=== PATIENT | female | born 1985 | race African-American/Black ===

== ENCOUNTER 2018-01-29 12:31 | Emergency (ER) | payer BC, OTHER ==
[2018-01-29] MEDS ORDERED: NORMAL SALINE 1000 ML 1,000 ML IV ONE ×2 (13:14→19:03)
--- NOTE | 2018-01-29 13:14 | ER Document Report ---
ED Medical Screen (RME) - General Chief Complaint: Chest Pain Stated Complaint: SHORT OF BREATH,DIZZY Time Seen by Provider: 01/29/18 13:09 Notes: Patient is a 32-year-old female that presents to the emergency department for chief complaint of chest tightness and shortness of breath. Patient states she is having symptoms over the past few days, she is also had burning in her chest , noticed that she has had dark stools starting yesterday, denies history of transfusions in the past, does admit to having GERD. Denies iron supplementation, or recent Pepto-Bismol ingestion. ROS: Other than noted above, the 12 point review of systems was reviewed with the patient and were negative, all pertinent findings are included in the HPI. PHYSICAL EXAMINATION: Vital signs reviewed. GENERAL: Well-appearing, well-nourished and in no acute distress. HEAD: Atraumatic, normocephalic. EYES: Pupils equal round extraocular movements intact, conjunctiva are normal. ENT: Nares patent NECK: Normal range of motion CV: Heart regular rate and rhythm LUNGS: No respiratory distress Musculoskeletal: Normal range of motion NEUROLOGICAL: Normal speech PSYCH: Normal mood, normal affect. MDM: Patient seen and examined for rapid initial assessment. Vital signs reviewed. A comprehensive ED assessment and evaluation of the patient, analysis of test results and completion of the medical decision making process will be conducted by additional ED providers. *Note is created using voice recognition software and may contain spelling, syntax or grammatical errors. TRAVEL OUTSIDE OF THE [place] IN LAST 30 DAYS: No - Related Data Allergies/Adverse Reactions: No Known Allergies Allergy (Verified 12/15/12 00:04) Past Medical History - Past Medical History Cardiac Medical History: Reports: Hx Hypertension - during Past Surgical History: Reports: Hx Section - x2 - Immunizations Immunizations up to date: Yes Hx Diphtheria, Pertussis, Tetanus Vaccination: No Physical Exam - Vital signs Vitals: Temp Pulse Resp BP Pulse Ox 98.6 F 85 17 115/72 100 01/29/18 12:58 01/29/18 12:58 01/29/18 12:58 01/29/18 12:58 01/29/18 12:58 Course - Vital Signs Vital signs: Temp Pulse Resp BP Pulse Ox 98.6 F 85 17 115/72 100 01/29/18 12:58 01/29/18 12:58 01/29/18 12:58 01/29/18 12:58 01/29/18 12:58 Doctor's Discharge - Discharge Referrals: GAB,NO [Primary Care Provider] - Follow up as needed
[2018-01-29] MEDS ORDERED: PANTOPRAZOLE SODIUM 40 MG VIAL IV ONE ×2 (13:15→16:31)
[2018-01-29] MEDS ORDERED: METOCLOPRAMIDE HCL ORAL SOLN 10 MG/10 ML UDCUP PO ONE (13:15)
[2018-01-29] MEDS ORDERED: FAMOTIDINE INJ/PF 20 MG/2 ML SDV IV ONE (13:15)
[2018-01-29] MEDS ORDERED: LIDOCAINE 2% VISCOUS SOLN 20 ML UDCUP PO ONE (13:15)
[2018-01-29] MEDS ORDERED: MAG HYDROX/AL HYDROX/SIMETH SUSP 30 ML UDCUP PO ONE (13:15)
[2018-01-29 13:57] LABS: ABSOLUTE BASOPHILS # (AUTO) 0.1 10^3/uL (0.0-0.2); ABSOLUTE EOSINOPHILS # (AUTO) 0.3 10^3/uL (0.0-0.6); ABSOLUTE LYMPHOCYTES (AUTO) 1.7 10^3/uL (0.5-4.7); ABSOLUTE MONOCYTES (AUTO) 0.7 10^3/uL (0.1-1.4); ABSOLUTE NEUT (AUTO) 6.1 10^3/uL (1.7-8.2); BASOPHILS % (AUTO) 0.7 % (0-2); EOSINOPHILS % (AUTO) 3.3 % (0-6); HEMATOCRIT 30.9 % (36.0-47.0); HEMOGLOBIN 10.3 g/dL (12.0-15.5); LYMPHOCYTES % (AUTO) 19.6 % (13-45); MEAN CORPUSCULAR HGB CONC 33.3 g/dL (32.0-36.0); MEAN CORPUSCULAR VOLUME 87 fl (80-97); MONOCYTES % (AUTO) 7.3 % (3-13); PLATELET COUNT 229 10^3/uL (150-450); RED BLOOD COUNT 3.55 10^6/uL (3.72-5.28); RED CELL DISTRIBUTION WIDTH 12.9 % (11.5-14.0); SEGMENTED NEUTROPHILS % (AUTO) 69.1 % (42-78); TOTAL CELLS COUNTED % (AUTO) 100 %; WHITE BLOOD COUNT 8.9 10^3/uL (4.0-10.5)
--- NOTE | 2018-01-29 13:58 | ER Document Report ---
ED General - General TRAVEL OUTSIDE OF THE [place] IN LAST 30 DAYS: No <FIDEL ALMANZA - Last Filed: 01/29/18 19:04> <CONRAD SANTIAGO - Last Filed: 01/29/18 21:46> - General Chief Complaint: Chest Pain Stated Complaint: SHORT OF BREATH,DIZZY Time Seen by Provider: 01/29/18 13:09 - HPI Notes: Patient is a 32-year-old female with no significant past medical history who presents to the ED complaining of chest pressure, epigastric pain, and shortness of breath over the last 2-3 days that has been constant and unchanging. Patient states that bending forward does reproduce her symptoms, but is okay with ambulation. She has not had any recent illness. Patient states that she has noticed dark colored stool, but is not sure if it is black or tarry. She is still able to eat and drink without any difficulties. She is urinating normally. She has not noticed any vaginal discharge, odor, or bleeding. Patient states that this has happened in the past but cannot remember what [facility] told her it was. Denies drug allergies or IV drug abuse. No other concerns or complaints. Denies any prolonged immobilization, distance travel, recent surgery/trauma, personal cancer history, hormone use, smoking, or previous DVT/PE. Denies any headache, fever, URI, sore throat, palpitations, syncope, cough, wheeze, abdominal pain, nausea/vomiting/diarrhea, urinary retention, dysuria, hematuria, back pain, or rash. Surgical hx of Lap band. (FIDEL ALMANZA) - Related Data Allergies/Adverse Reactions: No Known Allergies Allergy (Verified 12/15/12 00:04) Past Medical History - Social History Smoking Status: Never Smoker Frequency of alcohol use: Social Drug Abuse: Marijuana Family History: Thyroid Disfunction Patient has suicidal ideation: No Patient has homicidal ideation: No - Past Medical History Cardiac Medical History: Reports: Hx Hypertension - during Renal/ Medical History: Denies: Hx Peritoneal Dialysis GI Medical History: Reports: Hx Gastroesophageal Reflux Disease, Hx Ulcer Past Surgical History: Reports: Hx Section - x2 - Immunizations Immunizations up to date: Yes Hx Diphtheria, Pertussis, Tetanus Vaccination: No <FIDEL ALMANZA - Last Filed: 01/29/18 19:04> Review of Systems - Review of Systems -: Yes All other systems reviewed and negative <FIDEL ALMANZA - Last Filed: 01/29/18 19:04> Physical Exam <ARCHIEFIDEL - Last Filed: 01/29/18 19:04> <CONRAD SANTIAGO - Last Filed: 01/29/18 21:46> - Vital signs Vitals: Temp Pulse Resp BP Pulse Ox 98.6 F 85 17 115/72 100 01/29/18 12:58 01/29/18 12:58 01/29/18 12:58 01/29/18 12:58 01/29/18 12:58 - Notes Notes: PHYSICAL EXAMINATION: GENERAL: Well-appearing, well-nourished and in no acute distress. HEAD: Atraumatic, normocephalic. EYES: Pupils equal round and reactive to light, extraocular movements intact, sclera anicteric, conjunctiva are normal. ENT: Nares patent and without discharge. oropharynx clear without exudates. No tonsilar hypertrophy or erythema. Moist mucous membranes. NECK: Normal range of motion, supple without lymphadenopathy Chest: + tenderness to palpation of the inferior sternal area. LUNGS: Breath sounds clear to auscultation bilaterally and equal. No wheezes rales or rhonchi. HEART: Regular rate and rhythm without murmurs, rubs, gallops. ABDOMEN: Soft, nondistended abdomen. No guarding, no rebound. No masses appreciated. Normal bowel sounds present. No CVA tenderness bilaterally. + mild epigastric tenderness. Rectal: accompanied by female nurse Kylie. + black tarry stool noted. Musculoskeletal: FROM to passive/active. Strength 5+/5. Radha neg. No asymmetry to LE's. Extremities: No cyanosis, clubbing, or edema b/l. Peripheral pulses 2+. Capillary refill less than 3 seconds. NEUROLOGICAL: Normal speech, normal gait. PSYCH: Normal mood, normal affect. SKIN: Warm, Dry, normal turgor, no rashes or lesions noted. (FIDLE ALMANZA) Course - Laboratory Result Diagrams: 01/29/18 13:32 01/29/18 13:32 <FIDEL ALMANZA - Last Filed: 01/29/18 19:04> - Laboratory Result Diagrams: 01/29/18 13:32 01/29/18 13:32 <CONRAD SANTIAGO - Last Filed: 01/29/18 21:46> - Re-evaluation Re-evalutation: 01/29/18 16:39 Patient is an afebrile, well-hydrated, 32-year-old female who presents to the ED with Hemoccult positive stool, epigastric pain, chest pain unspecified. Vitals are acceptable currently without significant tachycardia, tachypnea, or hypoxia. CBC shows mild anemia. CMP unremarkable. Hemoccult/guaiac was positive as well as physical exam showing black tarry stool. Patient did receive a total of 80 mg of Protonix as a bolus as well as started on a Protonix drip. She has received nausea medications as well. Patient is nontoxic-appearing. EKG/cardiac enzymes 2, chest x-ray are all unremarkable for any acute pathology. Patient has a heart score of 1, Wells score of 0, and is PERC negative. Patient does not have any chest pain, dyspnea, or current shortness of breath. Patient's presentation and symptomatology creates low suspicion for ACS, PE, pneumothorax, pericarditis, dissection, respiratory compromise, severe dehydration, sepsis, meningitis. 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 01/29/18 16:[address] Ghazal Gold, [facility], who accepted pt for transfer. Pt in agreement. 01/29/18 19:05 Pt has no new concerns or complaints. Vitals acceptable. Transfer of care to [facility]. (FIDEL ALMANZA) 01/29/18 21:20 Patient reevaluated and is stable for transfer at this time. 01/29/18 21:43 transport is at bedside patient remained stable at this time. (CONRAD SANTIAGO) - Vital Signs Vital signs: Temp Pulse Resp BP Pulse Ox 98.6 F 82 16 120/76 100 01/29/18 12:58 01/29/18 21:00 01/29/18 21:00 01/29/18 21:00 01/29/18 21:00 - Laboratory Laboratory results interpreted by ks: 01/29/18 01/29/18 13:32 13:32 RBC 3.55 L Hgb 10.3 L Hct 30.9 L AST 38 H Discharge <FIDEL ALMANZA - Last Filed: 01/29/18 19:04> <CONRAD SANTIAGO - Last Filed: 01/29/18 21:46> - Discharge Clinical Impression: Upper GI bleed Condition: Stable Disposition: [facility] Referrals: LOCALMD,NO [NO LOCAL MD] - Follow up as needed
--- NOTE | 2018-01-29 14:06 | RADIOLOGY REPORT (SQ) ---
EXAM DESCRIPTION: CHEST 2 VIEWS COMPLETED DATE/TIME: 01/29/2018 1:44 pm REASON FOR STUDY: chest pain, short of breath COMPARISON: 07/07/2010 EXAM PARAMETERS: NUMBER OF VIEWS: two views TECHNIQUE: Digital Frontal and Lateral radiographic views of the chest acquired. RADIATION DOSE: NA LIMITATIONS: none FINDINGS: LUNGS AND PLEURA: No opacities, masses or pneumothorax. No pleural effusion. MEDIASTINUM AND HILAR STRUCTURES: No masses or contour abnormalities. HEART AND VASCULAR STRUCTURES: Heart normal size. No evidence for failure. BONES: No acute findings. HARDWARE: None in the chest. OTHER: No other significant finding. IMPRESSION: NO ACUTE RADIOGRAPHIC FINDING IN THE CHEST. TECHNICAL DOCUMENTATION: JOB ID: [id number] [employer]- All Rights Reserved Reading location - IP/workstation name: [email or web address]
[2018-01-29 14:17] LABS: ALANINE AMINOTRANSFERASE 25 U/L (9-52); ALBUMIN 4.1 g/dL (3.5-5.0); ALKALINE PHOSPHATASE 52 U/L (38-126); ANION GAP 11 (5-19); ASPARTATE AMINO TRANSFERASE 38 U/L (14-36); BILIRUBIN,DIRECT 0.2 mg/dL (0.0-0.4); BILIRUBIN,TOTAL 0.6 mg/dL (0.2-1.3); BLOOD UREA NITROGEN 19 mg/dL (7-20); CALCIUM 9.1 mg/dL (8.4-10.2); CARBON DIOXIDE 27 mmol/L (22-30); CHLORIDE 105 mmol/L (98-107); GLUCOSE 88 mg/dL (75-110); POTASSIUM 4.4 mmol/L (3.6-5.0); SODIUM 142.6 mmol/L (137-145); TOTAL PROTEIN 7.3 g/dL (6.3-8.2)
[2018-01-29] MEDS ORDERED: MECLIZINE HCL 25 MG TABLET PO ONE (16:18)
[2018-01-29] MEDS ORDERED: PANTOPRAZOLE SODIUM 40 MG VIAL IV PRN (16:31)
[2018-01-29 16:49] LABS: INTERNATIONAL RATION (INR) 1.05; PROTHROMBIN TIME 14.2 SEC (11.4-15.4)
[2018-01-29 16:53] LABS: PARTIAL THROMBOPLASTIN TIME 32.4 SEC (23.5-35.8)
--- NOTE | 2018-01-29 17:17 | EKG REPORT ---
SEVERITY:- BORDERLINE ECG - SINUS RHYTHM PROBABLE LEFT ATRIAL ABNORMALITY : Confirmed by: Rahul Benjamin MD 29-Jan-2018 17:17:09
[2018-01-29] MEDS ORDERED: NORMAL SALINE 1000 ML 1,000 ML IV PRN (19:03)
[2018-01-29 21:30] VITALS: BP 120/76
== END 2018-01-29 21:45 | disposition short-term general hospital (02) ==
LOC: ER 12:31
DX: K92.2 Gastrointestinal hemorrhage, unspecified (principal); R07.9 Chest pain, unspecified; R42 Dizziness and giddiness; R06.02 Shortness of breath; R10.13 Epigastric pain
CPT/HCPCS: 93005; 96376; 99285; 96361; 96375; 96365; 96366; 86900; 86901; 36415; 86850; 83690; 84703; 85025; 85610; 85730; 82272; 80053; 84484; 71046; 93010; J3490; S0164; J7030; S0028

== ENCOUNTER 2018-04-21 12:13 | Emergency (ER) | payer BC, MEDICAID ==
[2018-04-21] MEDS ORDERED: NORMAL SALINE 1000 ML 1,000 ML IV ONE (13:56)
--- NOTE | 2018-04-21 13:56 | ER Document Report ---
ED Medical Screen (RME) - General Chief Complaint: Abdominal Pain Stated Complaint: ABDOMINAL PAIN,NAUSEA,DIARRHEA Time Seen by Provider: 04/21/18 13:48 Notes: Patient is a 32-year-old female, history of lap band that presents to the emergency department for chief complaint of epigastric abdominal pain with nausea and vomiting. Pain started yesterday, worse after a meal, was previously on Prilosec, but ran out of this. ROS: Other than noted above, the 12 point review of systems was reviewed with the patient and were negative, all pertinent findings are included in the HPI. PHYSICAL EXAMINATION: Vital signs reviewed. GENERAL: Well-appearing, well-nourished and in no acute distress. HEAD: Atraumatic, normocephalic. EYES: Pupils equal round extraocular movements intact, conjunctiva are normal. ENT: Nares patent NECK: Normal range of motion CV: Heart regular rate and rhythm LUNGS: No respiratory distress Musculoskeletal: Normal range of motion NEUROLOGICAL: Normal speech PSYCH: Normal mood, normal affect. MDM: Patient seen and examined for rapid initial assessment. Vital signs reviewed. A comprehensive ED assessment and evaluation of the patient, analysis of test results and completion of the medical decision making process will be conducted by additional ED providers. *Note is created using voice recognition software and may contain spelling, syntax or grammatical errors. TRAVEL OUTSIDE OF THE [place] IN LAST 30 DAYS: No - Related Data Allergies/Adverse Reactions: No Known Allergies Allergy (Verified 04/21/18 12:18) Past Medical History - Social History Frequency of alcohol use: Social Drug Abuse: None - Past Medical History Cardiac Medical History: Reports: Hx Hypertension - during Renal/ Medical History: Denies: Hx Peritoneal Dialysis GI Medical History: Reports: Hx Gastroesophageal Reflux Disease, Hx Ulcer Past Surgical History: Reports: Hx Abdominal Surgery - lap band, Hx Section - x3 - Immunizations Immunizations up to date: Yes Hx Diphtheria, Pertussis, Tetanus Vaccination: No Physical Exam - Vital signs Vitals: Temp Pulse Resp BP Pulse Ox 99.2 F 65 16 128/72 H 100 04/21/18 12:27 04/21/18 12:27 04/21/18 12:27 04/21/18 12:27 04/21/18 12:27 Course - Vital Signs Vital signs: Temp Pulse Resp BP Pulse Ox 99.2 F 65 16 128/72 H 100 04/21/18 12:27 04/21/18 12:27 04/21/18 12:27 04/21/18 12:27 04/21/18 12:27
[2018-04-21] MEDS ORDERED: PANTOPRAZOLE SODIUM 40 MG VIAL IV ONE (13:57)
[2018-04-21 15:10] LABS: ABSOLUTE BASOPHILS # (AUTO) 0.1 10^3/uL (0.0-0.2); ABSOLUTE EOSINOPHILS # (AUTO) 0.7 10^3/uL (0.0-0.6); ABSOLUTE LYMPHOCYTES (AUTO) 1.7 10^3/uL (0.5-4.7); ABSOLUTE MONOCYTES (AUTO) 0.6 10^3/uL (0.1-1.4); ABSOLUTE NEUT (AUTO) 7.5 10^3/uL (1.7-8.2); BASOPHILS % (AUTO) 0.5 % (0-2); EOSINOPHILS % (AUTO) 6.4 % (0-6); HEMOGLOBIN 12.1 g/dL (12.0-15.5); LYMPHOCYTES % (AUTO) 15.7 % (13-45); MEAN CORPUSCULAR HGB CONC 33.6 g/dL (32.0-36.0); MEAN CORPUSCULAR VOLUME 83 fl (80-97); MONOCYTES % (AUTO) 5.8 % (3-13); PLATELET COUNT 257 10^3/uL (150-450); RED BLOOD COUNT 4.33 10^6/uL (3.72-5.28); RED CELL DISTRIBUTION WIDTH 13.2 % (11.5-14.0); SEGMENTED NEUTROPHILS % (AUTO) 71.6 % (42-78); TOTAL CELLS COUNTED % (AUTO) 100 %; WHITE BLOOD COUNT 10.5 10^3/uL (4.0-10.5)
[2018-04-21] MEDS ORDERED: DICYCLOMINE HCL INJ 20 MG/2 ML AMPULE IM ONE (15:18)
--- NOTE | 2018-04-21 15:22 | ER Document Report ---
ED General - General Chief Complaint: Abdominal Pain Stated Complaint: ABDOMINAL PAIN,NAUSEA,DIARRHEA Time Seen by Provider: 04/21/18 13:48 Mode of Arrival: Ambulatory Information source: Patient Notes: 45-year-old female presents emergency department complaints of periumbilical abdominal pain that started yesterday. No radiation the pain. She states that is been constant. She denies any alleviating or exacerbating factors. She says she is tried [id number] Pepto-Bismol without any relief of symptoms. Patient states that she has a history of upper GI bleeds and was on Prilosec in the past. Patient states that she ran out of this medication. She is having some associated nausea, vomiting, diarrhea. She denies any dysuria, increased urgency, increased frequency, hematuria, vaginal bleeding, vaginal discharge. No history of sick contacts. It has had a lap band placed and has had C- sections in the past. TRAVEL OUTSIDE OF THE [place] IN LAST 30 DAYS: No - HPI Onset: Yesterday Onset/Duration: Sudden Quality of pain: Achy, Stabbing Associated symptoms: Diarrhea, Nausea, Vomiting Exacerbated by: Denies Relieved by: Denies Similar symptoms previously: No Recently seen / treated by doctor: No - Related Data Allergies/Adverse Reactions: No Known Allergies Allergy (Verified 04/21/18 12:18) Past Medical History - General Information source: Patient - Social History Smoking Status: Never Smoker Frequency of alcohol use: Social Drug Abuse: None Family History: Thyroid Disfunction Patient has suicidal ideation: No Patient has homicidal ideation: No - Past Medical History Cardiac Medical History: Reports: Hx Hypertension - during Renal/ Medical History: Denies: Hx Peritoneal Dialysis GI Medical History: Reports: Hx Gastroesophageal Reflux Disease, Hx Ulcer Past Surgical History: Reports: Hx Abdominal Surgery - lap band, Hx Section - x3 - Immunizations Immunizations up to date: Yes Hx Diphtheria, Pertussis, Tetanus Vaccination: No Review of Systems - Review of Systems Constitutional: No symptoms reported EENT: No symptoms reported Cardiovascular: No symptoms reported Respiratory: No symptoms reported Gastrointestinal: Abdominal pain, Diarrhea, Nausea, Vomiting Genitourinary: No symptoms reported Female Genitourinary: No symptoms reported Musculoskeletal: No symptoms reported Skin: No symptoms reported Hematologic/Lymphatic: No symptoms reported Neurological/Psychological: No symptoms reported -: Yes All other systems reviewed and negative Physical Exam - Vital signs Vitals: Temp Pulse Resp BP Pulse Ox 99.2 F 65 16 128/72 H 100 04/21/18 12:27 04/21/18 12:27 04/21/18 12:27 04/21/18 12:27 04/21/18 12:27 - Notes Notes: PHYSICAL EXAMINATION: GENERAL: Well-appearing, well-nourished and in no acute distress. HEAD: Atraumatic, normocephalic. EYES: Pupils equal round and reactive to light, extraocular movements intact, conjunctiva are normal. ENT: Nares patent, oropharynx clear without exudates. Moist mucous membranes. NECK: Normal range of motion, supple without lymphadenopathy LUNGS: Breath sounds clear to auscultation bilaterally and equal. No wheezes rales or rhonchi. HEART: Regular rate and rhythm without murmurs ABDOMEN: Soft, nontender, nondistended abdomen. No guarding, no rebound. No masses appreciated. Female : deferred Musculoskeletal: Normal range of motion, no pitting or edema. No cyanosis. NEUROLOGICAL: Cranial nerves grossly intact. Normal speech, normal gait. Normal sensory, motor exams PSYCH: Normal mood, normal affect. SKIN: Warm, Dry, normal turgor, no rashes or lesions noted. Course - Re-evaluation Re-evalutation: 04/21/18 15:24 No abdominal tenderness to palpation on exam. No rebound or guarding. Normal active bowel sounds. Labs and imaging ordered. 04/21/18 16:27 Labs and imaging obtained. No acute process identified. Patient was given a liter of fluids, pantoprazole, Bentyl. On reevaluation, patient states that her symptoms have resolved. Patient is resting comfortably on the bed. She feels agreeable with discharge home and following up with her family doctor and bariatric surgeon outpatient. I instructed the patient to continue taking medications as directed, to follow-up with her physicians this week, and to return to the emergency department if she has worsening symptoms. Patient agrees with the plan of care. 04/21/18 16:27 - Vital Signs Vital signs: Temp Pulse Resp BP Pulse Ox 99.2 F 65 16 128/72 H 100 04/21/18 12:27 04/21/18 12:27 04/21/18 12:27 04/21/18 12:27 04/21/18 12:27 - Laboratory Result Diagrams: 04/21/18 14:04 04/21/18 14:04 Laboratory results interpreted by me: 04/21/18 04/21/18 14:04 14:04 Eosinophils % 6.4 H Absolute Eosinophils 0.7 H Urine Ketones 20 H Discharge - Discharge Clinical Impression: Gastroenteritis Condition: Good Disposition: HOME, SELF-CARE Instructions: Gastroenteritis (adult) ([facility]) Prescriptions: Ondansetron [Zofran Odt 4 mg Tablet] 1 tab PO Q4H PRN #15 tab.rapdis PRN Reason: For Nausea/Vomiting
[2018-04-21 15:35] LABS: ALANINE AMINOTRANSFERASE 19 U/L (9-52); ALBUMIN 4.4 g/dL (3.5-5.0); ALKALINE PHOSPHATASE 67 U/L (38-126); ANION GAP 9 (5-19); ASPARTATE AMINO TRANSFERASE 21 U/L (14-36); BILIRUBIN,DIRECT 0.2 mg/dL (0.0-0.4); BILIRUBIN,TOTAL 0.8 mg/dL (0.2-1.3); BLOOD UREA NITROGEN 9 mg/dL (7-20); CALCIUM 9.7 mg/dL (8.4-10.2); CARBON DIOXIDE 28 mmol/L (22-30); CHLORIDE 104 mmol/L (98-107); GLUCOSE 85 mg/dL (75-110); LIPASE 43.5 U/L (23-300); POTASSIUM 4.3 mmol/L (3.6-5.0); SODIUM 140.6 mmol/L (137-145); TOTAL PROTEIN 7.8 g/dL (6.3-8.2)
[2018-04-21 15:36] LABS: APPEARANCE,URINE SLIGHTLY-CLOUDY; BILIRUBIN,URINE NEGATIVE (NEGATIVE); COLOR,URINE YELLOW; GLUCOSE, URINE NEGATIVE (NEGATIVE); KETONES,URINE 20 mg/dL (NEGATIVE); LEUKOCYTE ESTERASE,URINE NEGATIVE (NEGATIVE); NITRITE,URINE NEGATIVE (NEGATIVE); PROTEIN,URINE NEGATIVE (NEGATIVE); URINE SPECIFIC GRAVITY 1.028; UROBILINOGEN,URINE NEGATIVE mg/dL (<2.0)
--- NOTE | 2018-04-21 16:12 | RADIOLOGY REPORT (SQ) ---
EXAM DESCRIPTION: ACUTE ABDOMEN SERIES COMPLETED DATE/TIME: 04/21/2018 3:59 pm REASON FOR STUDY: periumbilical abdominal pain COMPARISON: None. NUMBER OF VIEWS: Three views. TECHNIQUE: Frontal chest, supine abdomen and upright/decubitus abdomen radiographic images acquired. LIMITATIONS: None. FINDINGS: CHEST: Lungs clear of infiltrates. FREE AIR: None. No abnormal gas collections. BOWEL GAS PATTERN: General paucity of bowel gas. CALCIFICATIONS: No suspicious calcifications. HARDWARE: None in the abdomen. SOFT TISSUES: No gross mass or suggestion of organomegaly. BONES: No acute fracture. No worrisome bone lesions. OTHER: Adjustable lap band and reservoir are present in the mid abdomen. IMPRESSION: 1. General paucity of bowel gas, a nonspecific pattern. There are no obvious fluid dist ended loops of bowel to suggest bowel obstruction. No free air in the abdomen. Consider CT to [facility] evaluate if there is clinical concern for bowel obstruction. 2. Adjustable lap band and reservoir are present in the mid abdomen. TECHNICAL DOCUMENTATION: JOB ID: [id number] [employer]- All Rights Reserved Reading location - IP/workstation name: [email or web address]
[2018-04-21 16:39] VITALS: BP 136/82
== END 2018-04-21 16:39 | disposition home or self-care (01) ==
LOC: ER 12:13
DX: K52.9 Noninfective gastroenteritis and colitis, unspecified (principal); R10.33 Periumbilical pain; R19.7 Diarrhea, unspecified; R11.2 Nausea with vomiting, unspecified
CPT/HCPCS: 99284; 96372; 96361; 96374; 36415; 83690; 84703; 85025; 80053; 81001; 74022; J0500; S0164; J7030

== ENCOUNTER 2019-03-04 15:46 | Emergency (ER) | payer MEDICAID ==
[2019-03-04] MEDS ORDERED: NORMAL SALINE 1000 ML 1,000 ML IV ONE (16:55)
[2019-03-04] MEDS ORDERED: ONDANSETRON HCL INJ/PF 4 MG/2 ML SDV IV ONE (16:55)
[2019-03-04 17:20] LABS: ABSOLUTE BASOPHILS # (AUTO) 0.1 10^3/uL (0.0-0.2); ABSOLUTE LYMPHOCYTES (AUTO) 1.5 10^3/uL (0.5-4.7); ABSOLUTE MONOCYTES (AUTO) 0.5 10^3/uL (0.1-1.4); EOSINOPHILS % (AUTO) 0.3 % (0-6); HEMATOCRIT 36.3 % (36.0-47.0); HEMOGLOBIN 12.1 g/dL (12.0-15.5); LYMPHOCYTES % (AUTO) 24.7 % (13-45); MEAN CORPUSCULAR HEMOGLOBIN 27.1 pg (27.0-33.4); MEAN CORPUSCULAR HGB CONC 33.3 g/dL (32.0-36.0); MEAN CORPUSCULAR VOLUME 81 fl (80-97); MONOCYTES % (AUTO) 8.1 % (3-13); PLATELET COUNT 217 10^3/uL (150-450); RED BLOOD COUNT 4.47 10^6/uL (3.72-5.28); RED CELL DISTRIBUTION WIDTH 14.8 % (11.5-14.0); SEGMENTED NEUTROPHILS % (AUTO) 65.9 % (42-78); TOTAL CELLS COUNTED % (AUTO) 100 %
[2019-03-04 17:36] LABS: ALBUMIN 4.7 g/dL (3.5-5.0); ALKALINE PHOSPHATASE 73 U/L (38-126); ANION GAP 11 (5-19); ASPARTATE AMINO TRANSFERASE 27 U/L (14-36); BILIRUBIN,DIRECT 0.1 mg/dL (0.0-0.4); BILIRUBIN,TOTAL 1.2 mg/dL (0.2-1.3); BLOOD UREA NITROGEN 14 mg/dL (7-20); CALCIUM 10.2 mg/dL (8.4-10.2); CARBON DIOXIDE 28 mmol/L (22-30); CHLORIDE 99 mmol/L (98-107); GLUCOSE 81 mg/dL (75-110); POTASSIUM 4.5 mmol/L (3.6-5.0); TOTAL PROTEIN 8.3 g/dL (6.3-8.2)
--- NOTE | 2019-03-04 17:51 | RADIOLOGY REPORT (SQ) ---
EXAM DESCRIPTION: ACUTE ABDOMEN SERIES COMPLETED DATE/TIME: 03/04/2019 5:23 pm REASON FOR STUDY: abdominal pain; vomiting COMPARISON: 04/21/2018 NUMBER OF VIEWS: Three views. TECHNIQUE: Frontal chest, supine abdomen and upright/decubitus abdomen radiographic images acquired. LIMITATIONS: None. FINDINGS: CHEST: Lungs clear of infiltrates. FREE AIR: None. No abnormal gas collections. BOWEL GAS PATTERN: General paucity of small bowel gas, a nonspecific pattern. No obvious fluid diste nded loops of bowel in the abdomen to suggest obstruction. There is colonic gas present to the rectu m. No large burden of stool in the colon. No free air in the abdomen. CALCIFICATIONS: No suspicious calcifications. HARDWARE: Adjustable lap band and reservoir project about the left upper quadrant. SOFT TISSUES: No gross mass or suggestion of organomegaly. BONES: No acute fracture. No worrisome bone lesions. OTHER: No other significant finding. IMPRESSION: 1. General paucity of small bowel gas, a nonspecific pattern. No obvious fluid distende d loops of bowel in the abdomen to suggest obstruction. There is colonic gas present to the rectum. No large burden of stool in the colon. No free air in the abdomen. 2. Adjustable lap band and reservoir project about the left upper quadrant. 3. No acute abnormality of the lungs. TECHNICAL DOCUMENTATION: JOB ID: [id number] [employer]- All Rights Reserved Reading location - IP/workstation name: [email or web address]
[2019-03-04] MEDS ORDERED: PROMETHAZINE HCL INJ 25 MG/1 ML VIAL IV ONE ×4 (19:03→22:25)
--- NOTE | 2019-03-04 19:17 | ER Document Report ---
ED General - General Chief Complaint: Vomiting/Diarrhea Stated Complaint: NAUSEA/VOMITING Time Seen by Provider: 03/04/19 16:50 Primary Care Provider: MORRIS MAYNARD PA-C [Primary Care Provider] - Follow up as needed TRAVEL OUTSIDE OF THE [place] IN LAST 30 DAYS: No - Related Data Allergies/Adverse Reactions: No Known Allergies Allergy (Verified 03/04/19 16:40) Past Medical History - Social History Smoking Status: Unknown if Ever Smoked Chew tobacco use (# tins/day): No Frequency of alcohol use: Occasional Drug Abuse: None Family History: Thyroid Disfunction Patient has suicidal ideation: No Patient has homicidal ideation: No - Past Medical History Cardiac Medical History: Reports: Hx Hypertension - during Renal/ Medical History: Denies: Hx Peritoneal Dialysis GI Medical History: Reports: Hx Gastroesophageal Reflux Disease, Hx Ulcer Past Surgical History: Reports: Hx Abdominal Surgery - lap band, Hx Section - x3 - Immunizations Immunizations up to date: Yes Hx Diphtheria, Pertussis, Tetanus Vaccination: No Physical Exam - Vital signs Vitals: Temp Pulse Resp BP Pulse Ox 98.1 F 56 L 16 129/85 H 100 03/04/19 16:39 03/04/19 16:39 03/04/19 16:39 03/04/19 16:39 03/04/19 16:39 - Notes Notes: Patient is worse upon planing of nausea and vomiting and diarrhea for the past 5 days. Sister not able keep anything down. Diarrhea is watery is been no blood or recent antibiotics. Denies any fevers chest pain or shortness of breath with this. No urinary symptoms. Does report some crampy pain across her upper abdomen. She had a similar episode like this 2016 and she had fluid removed from her reservoir that went to her gastric banding. Past medical history is negative for diabetes hypertension heart disease. S urgical history sniffing for a lap banding in 2014 Social history she does not smoke or drink at all. LMP was February 13 Review of systems pertinent positives and negatives in HPI otherwise all the systems were reviewed and acutely negative PHYSICIAN EXAM -vital signs are noted triage note and note from triage reviewed GENERAL: Well-appearing, well-nourished and in ___no acute distress___ HEAD: Atraumatic, normocephalic. EYES: Pupils equal round and reactive to light, extraocular movements intact, sclera anicteric, conjunctiva are normal. ENT: nares patent, oropharynx clear without exudates. Slightly dry mucous membranes. NECK: supple without lymphadenopathy LUNGS: Breath sounds clear to auscultation bilaterally and equal. No wheezes rales or rhonchi. HEART: Regular rate and rhythm without murmurs ABDOMEN: Soft, nontender, normoactive bowel sounds. EXTREMITIES: No deformity, no edema. NEUROLOGICAL: No focal neurological deficits. Moves all extremities sp ontaneously and on command. PSYCH: Normal mood, normal affect. SKIN: Warm, Dry, normal turgor, no rashes or lesions noted. BACK-nontender in the midline Differential diagnosis dehydration abnormal electrolytes viral syndrome complications related to the lap banding Course - Re-evaluation Re-evalutation: 03/05/19 02:15 ED patient is remained stable she was given 2 L of IV fluids as well as 2 doses of Phenergan and Dilaudid for pain resting more comfortably. Patient is not had any additional episodes of vomiting since drinking the contrast Consult I discussed the case with our general surgeon he does not do bariatric s urgery and request that patient be transferred to where she had the surgery. I did discuss the case with the bariatric surgeon who is covering for Dr. Aguilar in [place] about the situation. He felt the patient can be discharged home tonight with follow-up in the clinic tomorrow if she was comfortable with that we need to be transferred down to [facility] located that patient would need to have the reservoir drained but they need a special needle and [facility] the procedure would probably not be done until the morning. He did not feel that this was a an acute emergency since the patient has had symptoms for 5 days discussed the findings with the patient and she is comfortable going home with follow-up for second the morning. At this time there is no indication for admission. I have discussed the findings with patient/family with return precautions and follow-up recommendations. Verbal discharge instructions given at the bedside and opportunity for questions given. Medication warnings were given if indicated. Patient is in agreement with this plan and has verbalized understanding of return precautions and the need for primary care follow-up as directed.. I did emphasize need for her to follow-up first thing in the morning at the bariatric clinic in [facility] turn if she gets worse also advised that she cannot have anything eat or drink until the morning 03/05/19 02:20 - Vital Signs Vital signs: Temp Pulse Resp BP Pulse Ox 98.7 F 70 20 94/43 L 98 03/05/19 01:31 03/05/19 01:31 03/05/19 01:31 03/05/19 01:31 03/05/19 01:31 - Laboratory Result Diagrams: 03/04/19 17:04 03/04/19 17:04 Laboratory results interpreted by me: 03/04/19 03/04/19 03/04/19 17:04 17:04 23:05 RDW 14.8 H Total Protein 8.3 H Urine Protein 30 H Urine Ketones 80 H Urine Urobilinogen 2.0 H Urine Ascorbic Acid 20 H Discharge - Discharge Clinical Impression: lap band malfunction Abdominal pain Qualifiers: Abdominal location: epigastric Qualified Code(s): R10.13 - Epigastric pain Vomiting Qualifiers: Vomiting type: unspecified Vomiting Intractability: non-intractable Nausea presence: with nausea Qualified Code(s): R11.2 - Nausea with vomiting, unspecified Condition: Good Disposition: HOME, SELF-CARE Instructions: Abdominal Pain ([facility]), Bowel Obstruction ([facility]) Additional Instructions: Please review the discharge instructions, they will tell you about your disease/injury and what you need to return to the ED for Return to the ED if you feel worse or can follow-up with your family doctor Do not have anything to eat or drink until you follow-up in the clinic in the morning Return if you get worse To follow-up in the bariatric surgery clinic in [place] or [place] first thing in the morning you do not have to call Please bring the CT disc with you Referrals: MORRIS MAYNARD PA-C [Primary Care Provider] - Follow up as needed
[2019-03-04] MEDS: HYDROMORPHONE HCL INJ/PF 2 MG/ML AMPULE IV PRN (20:51)
--- NOTE | 2019-03-04 23:25 | RADIOLOGY REPORT (SQ) ---
CT abdomen and pelvis with contrast on 03/04/2019 at 10:55 PM CLINICAL INDICATION: Upper abdominal pain, nausea and vomiting TECHNIQUE: Multiple axial images are obtained throughout the abdomen and pelvis following the administration of IV contrast and a small amount of oral contrast was also administered. This exam was performed according to our departmental dose-optimization program, which includes automated exposure control, adjustment of the mA and/or kV according to patient size and/or use of iterative reconstruction technique. Total DLP is 589.88 mGy*cm. COMPARISON: CT chest and upper abdomen from 06/26/2012 FINDINGS: Abdomen: There is minimal clustered groundglass opacity in the left lower lobe seen on axial images seven through nine of series 2 that is likely postinfectious or inflammatory. The lung bases are otherwise clear. There is fatty infiltration of the liver. The solid abdominal organs are otherwise unremarkable. There is no abdominal adenopathy. There has been significant slippage of the patient's lap band inferiorly with a large dilated pouch above the lap band with all of the oral contrast that was administered remaining within this dilated pouch even on the delayed imaging. There is no definite oral contrast that extends past the lap band. This lap band slippage is causing apparent high-grade obstruction in the stomach. Recommend urgent surgical consultation. The abdominal portion of the GI tract is otherwise unremarkable. There is no free fluid or free air within the abdomen. Pelvis: The uterus is retroverted/retroflexed. Small amount of free fluid in the pelvis is likely physiologic. Pelvic organs otherwise appear unremarkable by CT. There is no pelvic adenopathy. The pelvic portion of the GI tract including the appendix is unremarkable. No bony abnormality is noted. IMPRESSION: 1. Significant inferior slippage of the lap band around the mid to upper body of the stomach now with a large dilated pouch above the lap band with obstruction at the level of the band. Recommend urgent surgical consultation. 2. Minimal groundglass opacity in the left lower lobe that is likely postinfectious or inflammatory.
[2019-03-04 23:30] LABS: APPEARANCE,URINE SLIGHTLY-CLOUDY; BILIRUBIN,URINE NEGATIVE (NEGATIVE); COLOR,URINE YELLOW; GLUCOSE, URINE NEGATIVE (NEGATIVE); KETONES,URINE 80 mg/dL (NEGATIVE); LEUKOCYTE ESTERASE,URINE NEGATIVE (NEGATIVE); NITRITE,URINE NEGATIVE (NEGATIVE); PROTEIN,URINE 30 mg/dL (NEGATIVE); URINE SPECIFIC GRAVITY 1.044
[2019-03-04] MEDS ORDERED: RINGERS SOLUTION,LACTATED 1,000 ML IV ONE (23:53)
[2019-03-04] MEDS ORDERED: PROMETHAZINE HCL 25 MG SUPP (4 SUPP/ER DISP) PR ONE (23:55)
[2019-03-05] MEDS: HYDROMORPHONE HCL INJ/PF 2 MG/ML AMPULE IV PRN (00:52)
[2019-03-05 01:16] VITALS: BP 94/43
== END 2019-03-05 01:37 | disposition home or self-care (01) ==
LOC: ER 15:46
DX: R10.13 Epigastric pain (principal); R11.2 Nausea with vomiting, unspecified; R19.7 Diarrhea, unspecified; T85.518A Breakdown (mechanical) of other gastrointestinal prosthetic devices, implants and grafts, initial encounter; Y83.8 Other surgical procedures as the cause of abnormal reaction of the patient, or of later complication, without mention of misadventure at the time of the procedure
CPT/HCPCS: 96376; 99284; 96361; 96374; 96375; 36415; 83690; 84703; 85025; 80053; 81001; 74022; 74177; J3490; J1170 ×2; J2550; J7030; J7120

== ENCOUNTER → 2019-09-26 | Outpatient (CLI) | payer MEDICAID ==
[2019-09-26 10:23] VITALS: BP 141/84
--- NOTE | 2019-09-26 10:23 | ER RDC ASSESSMENT REPORT ---
Intake - In the Last 14 days Have you traveled outside [place]?: No Have you been in close contact with someone CONFIRMED: Yes Worked in Healthcare?: No - Symptoms Subjective Fever([place] feverish): No Chills: No Muscule Aches: No Runny Nose: No Sore Throat: No Cough (New or worsening chronic cough): No Shortness of breath: No Nausea or Vomiting: No Headache: No Abdominal Pain: No Diarrhea(3 or more loose stools in last 24 hours): No - Do you have any of the following Chronic lung disease: Asthma or emphysema or COPD: No Cystic Fibrosis: No Diabetes: No High Blood Pressure: No Cardiovascular Disease: No Chronic Kidney Disease: No Chronic Liver Disease: No Chronic blood disorder like Sickle Cell Disease: No Weak immune system due to disease or medication: No Neurologic condition that limits movement: No Developmental delay - Moderate to Severe: No Recent (within past 2 weeks) or current : No Morbid Obesity (>100 pounds over ideal weight): No Other Comment: Height 5 eight 1/2 weight 245 pounds - Objective Temperature: 96.2 F Pulse Rate: 76 Respiratory Rate: 18 Blood Pressure: 141/84 O2 Sat by Pulse Oximetry: 99 Objective: Given above, testing performed: If Testing Performed: Test Specimen Type Sent to General - General Information source: Patient Notes: Patient here at [facility] for COVID testing reports only to [place] last week though was around family member who tested positive yesterday started to have symptoms last Tuesday and got tested patient's last exposure to that family member was last of midnight patient does deny any symptoms for herself. Patient sees Dr. Gamaliel stone family will follow-up with her for any change in condition. - Related Data Allergies/Adverse Reactions: No Known Allergies Allergy (Verified 03/04/19 16:40) Past Medical History - General Information source: Patient - Social History Smoking Status: Never Smoker Family History: Thyroid Disfunction - Past Medical History Cardiac Medical History: Reports: Hx Hypertension - during Renal/ Medical History: Denies: Hx Peritoneal Dialysis GI Medical History: Reports: Hx Gastroesophageal Reflux Disease, Hx Ulcer Past Surgical History: Reports: Hx Abdominal Surgery - lap band, Hx Section - x3 Physical Exam - General General appearance: Appears well, Alert In distress: None Notes: PHYSICAL EXAMINATION: GENERAL: Well-appearing and in no acute distress. HEAD: Atraumatic, normocephalic. EYES: sclera anicteric, conjunctiva are normal. ENT: nares patent. Moist mucous membranes. NECK: Normal range of motion, supple without lymphadenopathy LUNGS: CTAB and equal. No wheezes rales or rhonchi. resp even and unlabored. lung sounds clear. HEART: Regular rate and rhythm without murmurs ABDOMEN: Soft, nontender, normal bowel sounds, no guarding. EXTREMITIES: No cyanosis. NEUROLOGICAL: Normal speech. PSYCH: Normal mood, normal affect. SKIN: Warm, Dry, normal turgor, Diagnostic Results Laboratory Results: Pending COVID testing results. Patient provided instructions regarding COVID to include: As a person under investigation for Covid 19, the [place] department of Health and Human Services, division of public health advises you to adhere to the following guidance until your test results are reported to you. If your test result is positive, you will receive additional information from your provider and your local health department at that time. Remain at home until you are cleared by the health provider or public health authorities. Keep a log of visitors to your home, notify any visitors to your home of your isolation status. If you plan to move to a new address or leave the county, notify the local health department in your County. Call your doctor or seek care if you have an urgent medical need. Before seeking medical care, call ahead to get instructions from the provider before arriving at the medical office clinic or hospital. Notify them that you are being tested for the virus that causes Covid 19 so that arrangements can be made, as necessary, to prevent transmission to others in the healthcare setting. Next, notify the local health department in your county. If a medical emergency arises and you need to call 911, inform the first responders that you are being tested for the virus that causes Covid 19. Next, notify the local health department in your county. Patient Education/Counseling Counseling/Education: Patient presents with upper respiratory symptoms worrisome for possible Covid 19. Patient does not have emergency worring symptoms such as difficulty breathing, shortness of breath, chest pain, pressure, confusion or cyanosis. Patient appears suitable for discharge. Patient instructed to follow-up with PCP Dr. Alston advised and family. To ED for any change in condition patient's vital signs are stable and patient is nontoxic in appearance. Good return precautions have been discussed with patient, patient verbalized understanding and is agreeable with discharge plan of care at this time. RDC Discharge - Discharge Condition: Stable Disposition: Home; Selfcare
== END ==
LOC: RDC 09:44
PROVIDERS: ATTEND Nurse Practitioner Family
DX: Z20.828 Contact with and (suspected) exposure to other viral communicable diseases (principal); K21.9 Gastro-esophageal reflux disease without esophagitis
CPT/HCPCS: 87635; C9803; 99201; 99211